=== PATIENT | female | born 1995 | race Caucasian/White ===

== ENCOUNTER 2017-02-15 13:50 | Emergency (ER) | payer BC ==
[~2017-02-15] VITALS: Ht 167.6 cm; Wt 60.0 kg
[2017-02-15 13:52] VITALS: BP 135/76; PULSE 84; RESP 20; TEMP 97.7; O2SAT 100
[2017-02-15] MEDS ORDERED: ZOLO50TA PO (15:38)
[2017-02-15] MEDS ORDERED: ONDANSETRON HCL 4 MG/2 ML VIAL IV PUSH ONE (15:45)
[2017-02-15] MEDS ORDERED: SODIUM CHLOR 0.9% 1000 ML INJ 1,000 ML IV ONE (15:45)
[2017-02-15] MEDS ORDERED: KETOROLAC TROMETHAMINE 30 MG/ML (IVP) VIAL IV PUSH ONE (15:45)
--- NOTE | 2017-02-15 15:53 | PD ---
HPI Chief Complaint: Pain: Acute or Chronic Time Seen by Provider: 15:37 Travel History International Travel<30 days: No Contact w/Intl Traveler<30days: No Traveled to known affect area: No History of Present Illness HPI 21yo F with PMH of migraine and depression on zoloft presents to the ED with c/ o bilateral temporal headaches for 3 days. Pt has been having migraine headaches for 7-8 years and this feels like her usual migraine headache. Headache associated with photophobia, nausea and had vomiting today. Denies any fever, neck pain, rash, chest pain, sob, abdominal pain, focal weakness or numbness. She took topamax last yesterday. Pt has neurologist that she follows up with. PFSH Past Medical History Anxiety: Yes Migraines: Yes Tetanus Vaccination: > 5 Years Influenza Vaccination: No ?: Not Social History Alcohol Use: Yes (SOCIALLY) Tobacco Use: No Substance Use: No Allergies-Medications (Allergen,Severity, Reaction): Coded Allergies: No Known Allergies (Unverified , 02/15/17) Reported Meds & Prescriptions Reported Meds & Active Scripts Active Reported Zoloft (Sertraline HCl) 50 Mg Tab 50 Mg PO DAILY Review of Systems Except as stated in HPI: all other systems reviewed are Neg Physical Exam Narrative GENERAL: [-] SKIN: Warm and dry. HEAD: Atraumatic. Normocephalic. EYES: Pupils equal and round. No scleral icterus. No injection or drainage. ENT: No nasal bleeding or discharge. Mucous membranes pink and moist. NECK: Trachea midline. No JVD. CARDIOVASCULAR: Regular rate and rhythm. No murmur appreciated. RESPIRATORY: No accessory muscle use. Clear to auscultation. Breath sounds equal bilaterally. GASTROINTESTINAL: Abdomen soft, non-tender, nondistended. Hepatic and splenic margins not palpable. MUSCULOSKELETAL: No obvious deformities. No clubbing. No cyanosis. No edema. NEUROLOGICAL: Awake and alert. No obvious cranial nerve deficits. Motor grossly within normal limits. Normal speech. PSYCHIATRIC: Appropriate mood and affect; insight and judgment normal. Data Data Last Documented VS Vital Signs Date Time Temp Pulse Resp B/P Pulse Ox O2 Delivery O2 Flow Rate FiO2 02/15/17 13:52 97.7 84 20 135/76 100 Room Air Orders Ketorolac Inj (Toradol Inj) (02/15/17 15:45) Ondansetron Inj (Zofran Inj) (02/15/17 15:45) Sodium Chlor 0.9% 1000 Ml Inj (Ns 1000 M (02/15/17 15:45) MDM Medical Decision Making Medical Screen Exam Complete: Yes Emergency Medical Condition: Yes Interpretation(s) Vital Signs Date Time Temp Pulse Resp B/P Pulse Ox O2 Delivery O2 Flow Rate FiO2 02/15/17 13:52 97.7 84 20 135/76 100 Room Air Differential Diagnosis Migraine headache vs. sinus headache vs. tension headache Narrative Course 21yo F with her usual migraine headache here with bilateral temporal headache. No focal neurologic deficits. No red flags. Pt given zofran, toradol and IVF NS. Pt reevaluated at bedside and states that headache has resolved. Pt has neurologist to follow up with. VS stable. Return precautions given. Diagnosis Primary Impression: Migraine Qualified Code: G43.909 - Migraine without status migrainosus, not intractable , unspecified migraine type Patient Instructions: General Instructions Departure Forms: Tests/Procedures Additional Instructions: Please follow up with your neurologist in 3-7 days. Return to the ED if symptoms worsen. Med/Other Pt SpecificInfo: Prescription(s) given Scripts Acetaminophen (Acetaminophen Extra Strength)500 Mg [id number] Mg PO Q6H PRN (PAIN SCALE 1 TO 4) #20 TAB Ref 0 Prov:Susannah Oswald DO 02/15/17 Ondansetron (Zofran)4 Mg Tab4 Mg PO Q8HR PRN (NAUSEA OR VOMITING) #7 TAB Ref 0 Prov:Susannah Oswald DO 02/15/17 Disposition: 01 DISCHARGE HOME Condition: Stable Susannah Oswald DO Feb 15, 2017 15:53
[2017-02-15] MEDS ORDERED: ACET500T36 PO (17:12)
[2017-02-15] MEDS ORDERED: ZOFR4TAB PO (17:12)
== END 2017-02-15 18:42 | disposition home or self-care (01) ==
LOC: NEPA 13:50
DX: G43.909 Migraine, unspecified, not intractable, without status migrainosus (principal)
CPT/HCPCS: 96374; 96375; 99283; J1885; J2405; J7030